=== PATIENT | female | born 1945 | race Caucasian/White ===

== ENCOUNTER 2017-04-22 10:18 | Inpatient (IN) | payer MEDICARE ==
[~2017-04-22] VITALS: Ht 160 cm; Wt 62.1 kg
[~2017-04-22 10:18] MED LIST: GABA300C10 PO
[2017-04-22] MEDS ORDERED: FLUO20CA19 PO (10:33)
[2017-04-22] MEDS ORDERED: SODIUM CHLORIDE 0.9% 1,000 ML IV ONE (10:35)
[2017-04-22] MEDS ORDERED: ONDANSETRON 2MG/ML, 2ML ONE (10:44)
[2017-04-22] MEDS ORDERED: LORazepam 2 MG/ML, 1ML ONE ×2 (10:45→12:17)
[2017-04-22] MEDS ORDERED: ONDANSETRON 2MG/ML, 2ML IVPush ONE (11:00)
[2017-04-22] MEDS ORDERED: LORazepam 2 MG/ML, 1ML IVPush ONE ×2 (11:00→12:30)
[2017-04-22] MEDS ORDERED: SODIUM CHLORIDE 0.9% 1,000ML IVBOLUS ONE (11:00)
[2017-04-22 11:10] LABS: ASPARTATE AMINO TRANSFERASE 49 U/L (15-37); BLOOD UREA NITROGEN 17 mg/dL (7-18)
[2017-04-22 11:23] LABS: ACETAMINOPHEN < 2 mcg/mL (10-30)
[2017-04-22] MEDS ORDERED: SODIUM CHLORIDE FLUSH 10ML SYR IVF PRN (13:30)
[2017-04-22] MEDS ORDERED: DILTIAZEM 5 MG/ML, 5ML IVPush PRN (14:00)
[2017-04-22] MEDS ORDERED: THIAMINE 200 MG in SODIUM CHLORIDE 0.9% 50 ML IV ONE (14:00)
[2017-04-22] MEDS ORDERED: LORazepam 2 MG/ML, 1ML IVPush PRN (14:00)
[2017-04-22 14:58] VITALS: BP 119/76
[2017-04-22] MEDS ORDERED: HEPARIN 5,000 UNITS/ML, 1ML IV ONE (15:30)
[2017-04-22] MEDS ORDERED: LOSA25TA5 PO (15:35)
[2017-04-22] MEDS: HEPARIN 25,000 UNITS/500ML PMX 500 ML IV PRN (16:45)
[2017-04-22] MEDS: POTASSIUM CHLORIDE 20 MEQ, MAGNESIUM SULFATE 1 GM, FOLIC ACID 1 MG, THIAMINE 100 MG, MV... IV SCH (17:11)
[2017-04-22] MEDS ORDERED: LOSA1TAB18 PO (17:15)
[2017-04-22 18:45] VITALS: BP 120/73
[2017-04-22] MEDS: TRAZODONE 50MG TABLET PO SCH (22:08)
[2017-04-22 23:23] LABS: DAU SCREEN DISCLAIMER
[2017-04-23 01:15] VITALS: BP 145/82
[2017-04-23 06:15] LABS: ASPARTATE AMINO TRANSFERASE 34 U/L (15-37); BLOOD UREA NITROGEN 13 mg/dL (7-18)
[2017-04-23] MEDS: HEPARIN 5,000 UNITS/ML, 1ML IV PRN ×2 (06:17→19:01)
[2017-04-23 07:46] VITALS: BP 122/77
[2017-04-23 08:16] LABS: TOTAL IRON BINDING CAPACITY 260 mcg/dL (250-450)
[2017-04-23] MEDS: FLUOXETINE 20 MG CAPSULE PO SCH (10:40)
[2017-04-23 12:53] LABS: OCCBLD OBC PASS
[2017-04-23 16:09] VITALS: BP 143/79
[2017-04-23] MEDS: POTASSIUM CHLORIDE 20 MEQ, MAGNESIUM SULFATE 1 GM, FOLIC ACID 1 MG, THIAMINE 100 MG, MV... IV SCH (17:35)
[2017-04-23 18:47] VITALS: BP 143/82
[2017-04-23] MEDS: TRAZODONE 50MG TABLET PO SCH (20:18)
[2017-04-24] MEDS: HEPARIN 25,000 UNITS/500ML PMX 500 ML IV PRN (01:17)
[2017-04-24 01:21] VITALS: BP 124/71
[2017-04-24 06:00] LABS: BLOOD UREA NITROGEN 6 mg/dL (7-18)
[2017-04-24 06:05] LABS: ASPARTATE AMINO TRANSFERASE 70 U/L (15-37)
[2017-04-24 06:51] VITALS: BP 129/76
[2017-04-24] MEDS: FLUOXETINE 20 MG CAPSULE PO SCH (08:14)
[2017-04-24] MEDS: HEPARIN 5,000 UNITS/ML, 1ML IV PRN (09:31)
[2017-04-24] MEDS ORDERED: ASPI325T80 PO (12:55)
[2017-04-24] MEDS ORDERED: POTA20PA8 PO (12:55)
[2017-04-24] MEDS ORDERED: MULT-658 PO (12:55)
[2017-04-24 14:21] VITALS: BP 155/89
== END 2017-04-24 15:32 | disposition home or self-care (01) | DRG 309 ==
LOC: ED 12:36 → EDIP 13:17 → 5SO 14:48 → DCLOUNGE 04-24 14:54
DX: I48.0 Paroxysmal atrial fibrillation (principal); R71.0 Precipitous drop in hematocrit; F10.239 Alcohol dependence with withdrawal, unspecified; E87.2 Acidosis; I10 Essential (primary) hypertension; F41.9 Anxiety disorder, unspecified; G89.29 Other chronic pain; K70.9 Alcoholic liver disease, unspecified; M54.5 Low back pain; R45.1 Restlessness and agitation; Y90.9 Presence of alcohol in blood, level not specified; R45.4 Irritability and anger; Z90.710 Acquired absence of both cervix and uterus; Z91.81 History of falling; Z79.899 Other long term (current) drug therapy
CPT/HCPCS: 36415; 71010; 80053; 80307; 80329; 81003; 82010; 82140; 82272; 83540; 83550; 83735; 84100; 84443; 85014; 85018; 85025; 85520; 93005; 93306; 96361; 96374; 96375; 96376; J1644; J2405; J3411; J3475; J3480; J7042; G0480; J2060; J7030

== ENCOUNTER → 2017-10-23 | Outpatient (CLI) | payer MEDICARE ==
[~2017-10-23] MED LIST changes: +ASPI325T80 PO; +FLUO20CA19 PO; +LIDOCAINE 1%, 50ML ONE; +LOSA1TAB25 PO; +LOSA25TA5 PO; +MULT-658 PO; +POTA20PA25 PO
== END | disposition home or self-care (01) ==
LOC: CFH 08:04
PROVIDERS: ATTEND Nurse Practitioner Family
DX: N60.82 Other benign mammary dysplasias of left breast (principal); R92.1 Mammographic calcification found on diagnostic imaging of breast
CPT/HCPCS: 19081; 77065; 88305; J3490

== ENCOUNTER 2018-04-03 05:55 | Inpatient (IN) | payer MEDICARE ==
[~2018-04-03] VITALS: Ht 160 cm; Wt 58.0 kg
[~2018-04-03 05:55] MED LIST changes: -LIDOCAINE 1%, 50ML ONE
[2018-04-03] MEDS ORDERED: ONDANSETRON 2MG/ML, 2ML IVPush ONE (07:30)
[2018-04-03] MEDS ORDERED: MORPHINE SULFATE 4 MG/ML, 1ML IVPush PRN (07:30)
[2018-04-03 07:41] LABS: BASOPHILS # (AUTO) 0.02 x10^3/uL (0-0.1); BASOPHILS % (AUTO) 0 % (0-1); EOSINOPHILS # (AUTO) 0.06 x10^3/uL (0-0.4); EOSINOPHILS % (AUTO) 1 % (1-7); LYMPHOCYTES # (AUTO) 0.85 x10^3/uL (1-3.4); LYMPHOCYTES % (AUTO) 12 % (22-44); MD NO; MEAN CORPUSCULAR HEMOGLOBIN 33.2 pg (27.0-34.8); MEAN CORPUSCULAR HGB CONC 33.9 g/dL (32.4-35.8); MEAN CORPUSCULAR VOLUME 97.8 fL (80-100); MEAN PLATELET VOLUME 7.5 fL (7.4-10.4); MONOCYTES # (AUTO) 0.73 x10^3/uL (0.2-0.8); MONOCYTES % (AUTO) 11 % (2-9); NEUTROPHILS # (AUTO) 5.21 x10^3/uL (1.8-6.8); NEUTROPHILS % (AUTO) 76 % (42-75); PLATELET COUNT 271 x10^3/uL (130-400)
[2018-04-03 07:50] LABS: INTERNATIONAL NORMALIZED RATIO 0.97 (0.93-1.1)
[2018-04-03 07:52] LABS: ALANINE AMINOTRANSFERASE 23 U/L (12-78); ALBUMIN 4.4 g/dL (3.4-5.0); ANION GAP 10 mmol/L (5-15); BILIRUBIN, DIRECT 0.2 mg/dL (0.1-0.2); CHLORIDE 96 mmol/L (98-107); CREATININE 0.67 mg/dL (0.55-1.02)
[2018-04-03 07:53] LABS: ALKALINE PHOSPHATASE 57 U/L (45-117); BILIRUBIN,INDIRECT 0.5 mg/dL (0.0-2.0); BILIRUBIN,TOTAL 0.7 mg/dL (0.2-1.0); TOTAL PROTEIN 8.8 g/dL (6.4-8.2)
[2018-04-03] MEDS ORDERED: MORPHINE SULFATE 4 MG/ML, 1ML ONE (08:02)
[2018-04-03] MEDS ORDERED: ONDANSETRON 2MG/ML, 2ML ONE ×2 (08:02→17:36)
[2018-04-03] MEDS ORDERED: SODIUM CHLORIDE FLUSH 10ML SYR IVF PRN (08:30)
[2018-04-03 09:07] VITALS: BP 107/70
[2018-04-03] MEDS ORDERED: DOCUSATE 100 MG CAPSULE PO PRN (09:30)
[2018-04-03] MEDS ORDERED: ENALAPRILAT 1.25 MG/ML, 2ML IVPush PRN (09:30)
[2018-04-03] MEDS ORDERED: LORazepam 2 MG/ML, 1ML IVPush PRN ×2 (09:30→17:30)
[2018-04-03] MEDS ORDERED: BISACODYL 10 MG SUPP PR PRN (09:30)
[2018-04-03] MEDS ORDERED: ACETAMINOPHEN 325 MG TABLET PO PRN ×2 (09:30→17:30)
[2018-04-03] MEDS: SODIUM CHLORIDE 0.9% 1,000 ML IV SCH (10:20)
[2018-04-03] MEDS: morphine SULFATE 10 MG/ML, 1ML IVPush PRN (11:04)
[2018-04-03] MEDS ORDERED: ONDANSETRON ODT 4 MG PO PRN (12:00)
[2018-04-03 13:24] VITALS: BP 103/64
[2018-04-03] MEDS ORDERED: ONDANSETRON 2MG/ML, 2ML IVPush PRN (14:00)
[2018-04-03] MEDS ORDERED: MIDAZOLAM 1 MG/ML, 2ML ONE (15:54)
[2018-04-03] MEDS ORDERED: FENTANYL PF 250 MCG/5ML ONE (15:55)
[2018-04-03] MEDS ORDERED: ROCURONIUM 10MG/ML,5ML ONE (15:56)
[2018-04-03] MEDS ORDERED: SODIUM CHLORIDE 0.9% PF 10ML ONE (15:57)
[2018-04-03] MEDS ORDERED: CEFAZOLIN 1,000 MG ONE ×2 (15:57)
[2018-04-03] MEDS ORDERED: PROPOFOL 10 MG/ML, 20ML ONE ×2 (15:58)
[2018-04-03] MEDS ORDERED: DEXAMETHASONE 4 MG/ML, 1ML ONE ×2 (15:58)
[2018-04-03] MEDS ORDERED: TRANEXAMIC ACID 100 MG/ML, 10ML ONE (16:37)
[2018-04-03] MEDS ORDERED: PROMETHAZINE 25 MG/ML, 1ML IV PRN (17:30)
[2018-04-03] MEDS ORDERED: HALOPERIDOL 5 MG/ML IV PRN (17:30)
[2018-04-03] MEDS ORDERED: MEPERIDINE/PF 25MG/0.5ML IVPush PRN (17:30)
[2018-04-03] MEDS ORDERED: LABETALOL 5MG/ML, 20ML IV PRN (17:30)
[2018-04-03] MEDS ORDERED: hydrALAzine 20 MG/ML, 1ML IV PRN (17:30)
[2018-04-03] MEDS ORDERED: OXYcodone 5 MG/5 ML ORAL.SOL UDC PO PRN (17:30)
[2018-04-03] MEDS ORDERED: FENTANYL PF 100 MCG/2ML IV PRN (17:30)
[2018-04-03] MEDS ORDERED: HYDROmorphone 1 MG/ML, 1ML IV PRN (17:30)
[2018-04-03] MEDS ORDERED: NEOSPORIN OINT, 15GM ONE (17:34)
[2018-04-03] MEDS ORDERED: OXYcodone 5 MG/5 ML ORAL.SOL UDC ONE (18:25)
[2018-04-03] MEDS ORDERED: FENTANYL PF 100 MCG/2ML ONE (18:30)
[2018-04-03 19:45] VITALS: BP 100/70
[2018-04-03] MEDS: ASPIRIN 81 MG TABLET EC PO SCH (20:43)
[2018-04-04] MEDS: OXYcodone 5 MG/5 ML ORAL.SOL UDC PO PRN ×6 (00:20→21:29)
[2018-04-04] MEDS: CEFAZOLIN PMX 1GM/50ML 50 ML IV SCH ×3 (00:20→15:59)
[2018-04-04 01:03] VITALS: BP 105/69
[2018-04-04] MEDS: SODIUM CHLORIDE 0.9% 1,000 ML IV SCH ×3 (02:30→21:25)
[2018-04-04 05:23] LABS: BASOPHILS % (AUTO) 0 % (0-1); EOSINOPHILS % (AUTO) 0 % (1-7); LYMPHOCYTES # (AUTO) 0.55 x10^3/uL (1-3.4); LYMPHOCYTES % (AUTO) 6 % (22-44); MD NO; MEAN CORPUSCULAR HEMOGLOBIN 33.2 pg (27.0-34.8); MEAN CORPUSCULAR HGB CONC 33.5 g/dL (32.4-35.8); MEAN PLATELET VOLUME 7.6 fL (7.4-10.4); MONOCYTES # (AUTO) 0.71 x10^3/uL (0.2-0.8); MONOCYTES % (AUTO) 8 % (2-9); NEUTROPHILS # (AUTO) 7.44 x10^3/uL (1.8-6.8); NEUTROPHILS % (AUTO) 86 % (42-75); PLATELET COUNT 254 x10^3/uL (130-400); RED BLOOD COUNT 2.93 x10^6/uL (3.82-5.3); RED CELL DISTRIBUTION WIDTH 12.8 % (9.6-15.2)
[2018-04-04 05:45] LABS: CHLORIDE 101 mmol/L (98-107)
[2018-04-04 05:54] LABS: ANION GAP 8 mmol/L (5-15); CALCIUM 8.6 mg/dL (8.5-10.1); CREATININE 0.61 mg/dL (0.55-1.02)
[2018-04-04 06:44] VITALS: BP 109/64
[2018-04-04] MEDS: morphine SULFATE 10 MG/ML, 1ML IVPush PRN (07:53)
[2018-04-04] MEDS: ASPIRIN 81 MG TABLET EC PO SCH ×2 (07:54→21:24)
[2018-04-04] MEDS: FLUOXETINE HCL 20 MG CAPSULE PO SCH (07:54)
[2018-04-04] MEDS: MAGNESIUM OXIDE 400 MG TABLET PO SCH (10:29)
[2018-04-04] MEDS: FOLIC ACID 1 MG TABLET PO SCH (10:29)
[2018-04-04] MEDS: THIAMINE 100MG TABLET PO SCH (10:30)
[2018-04-04] MEDS: KETOROLAC 30 MG/1 ML IVPush PRN ×2 (10:31→21:25)
[2018-04-04] MEDS ORDERED: ROPINIROLE 1MG TABLET ONE (11:58)
[2018-04-04] MEDS: ROPINIROLE 1MG TABLET PO SCH (11:59)
[2018-04-04 13:31] VITALS: BP 92/57
[2018-04-04 20:12] VITALS: BP 137/84
[2018-04-05 01:09] VITALS: BP 93/54
[2018-04-05] MEDS: OXYcodone 5 MG/5 ML ORAL.SOL UDC PO PRN ×6 (01:44→22:03)
[2018-04-05 04:57] LABS: ANION GAP 5 mmol/L (5-15); CALCIUM 8.3 mg/dL (8.5-10.1); CHLORIDE 97 mmol/L (98-107)
[2018-04-05 04:58] LABS: BASOPHILS # (AUTO) 0.02 x10^3/uL (0-0.1); BASOPHILS % (AUTO) 0 % (0-1); CREATININE 0.63 mg/dL (0.55-1.02); EOSINOPHILS # (AUTO) 0.08 x10^3/uL (0-0.4); EOSINOPHILS % (AUTO) 1 % (1-7); LYMPHOCYTES # (AUTO) 1.15 x10^3/uL (1-3.4); LYMPHOCYTES % (AUTO) 19 % (22-44); MD NO; MEAN CORPUSCULAR HEMOGLOBIN 33.4 pg (27.0-34.8); MEAN CORPUSCULAR VOLUME 98.2 fL (80-100); MEAN PLATELET VOLUME 7.5 fL (7.4-10.4); MONOCYTES # (AUTO) 0.69 x10^3/uL (0.2-0.8); MONOCYTES % (AUTO) 11 % (2-9); NEUTROPHILS % (AUTO) 69 % (42-75); PLATELET COUNT 207 x10^3/uL (130-400); RED BLOOD COUNT 2.35 x10^6/uL (3.82-5.3); RED CELL DISTRIBUTION WIDTH 12.6 % (9.6-15.2)
[2018-04-05] MEDS: KETOROLAC 30 MG/1 ML IVPush PRN ×2 (05:39→14:05)
[2018-04-05 06:44] VITALS: BP 98/60
[2018-04-05] MEDS: ROPINIROLE 1MG TABLET PO SCH (08:17)
[2018-04-05] MEDS: FLUOXETINE HCL 20 MG CAPSULE PO SCH (08:17)
[2018-04-05] MEDS: MAGNESIUM OXIDE 400 MG TABLET PO SCH (08:17)
[2018-04-05] MEDS: FOLIC ACID 1 MG TABLET PO SCH (08:17)
[2018-04-05] MEDS: ASPIRIN 81 MG TABLET EC PO SCH ×2 (08:17→22:00)
[2018-04-05] MEDS: THIAMINE 100MG TABLET PO SCH (08:18)
[2018-04-05] MEDS: SODIUM CHLORIDE 0.9% 1,000 ML IV SCH ×2 (08:30→18:30)
[2018-04-05 13:12] VITALS: BP 103/64
[2018-04-05] MEDS: MAGNESIUM HYDROXIDE 8%, 30ML UDC PO SCH (17:49)
[2018-04-05 18:59] VITALS: BP 108/67
[2018-04-05] MEDS ORDERED: MAGNESIUM CITRATE 300ML ORAL SOL PO ONE (21:00)
[2018-04-06 00:55] VITALS: BP 119/73
[2018-04-06] MEDS: KETOROLAC 30 MG/1 ML IVPush PRN (01:56)
[2018-04-06] MEDS: OXYcodone 5 MG/5 ML ORAL.SOL UDC PO PRN ×5 (01:57→14:31)
[2018-04-06 04:19] VITALS: BP 107/66
[2018-04-06] MEDS: SODIUM CHLORIDE 0.9% 1,000 ML IV SCH ×2 (04:30→08:58)
[2018-04-06 07:10] VITALS: BP 91/52
[2018-04-06 07:37] LABS: ALBUMIN 2.8 g/dL (3.4-5.0); ANION GAP 5 mmol/L (5-15); CALCIUM 8.3 mg/dL (8.5-10.1); CHLORIDE 98 mmol/L (98-107); CREATININE 0.58 mg/dL (0.55-1.02)
[2018-04-06 07:47] LABS: BASOPHILS # (AUTO) 0.01 x10^3/uL (0-0.1); BASOPHILS % (AUTO) 0 % (0-1); EOSINOPHILS # (AUTO) 0.08 x10^3/uL (0-0.4); EOSINOPHILS % (AUTO) 1 % (1-7); LYMPHOCYTES # (AUTO) 0.87 x10^3/uL (1-3.4); LYMPHOCYTES % (AUTO) 14 % (22-44); MD NO; MEAN CORPUSCULAR HEMOGLOBIN 33.5 pg (27.0-34.8); MEAN CORPUSCULAR VOLUME 98.3 fL (80-100); MEAN PLATELET VOLUME 7.3 fL (7.4-10.4); MONOCYTES # (AUTO) 0.89 x10^3/uL (0.2-0.8); MONOCYTES % (AUTO) 14 % (2-9); NEUTROPHILS # (AUTO) 4.42 x10^3/uL (1.8-6.8); NEUTROPHILS % (AUTO) 70 % (42-75); PLATELET COUNT 295 x10^3/uL (130-400); RED CELL DISTRIBUTION WIDTH 12.3 % (9.6-15.2)
[2018-04-06] MEDS ORDERED: ROPI1TAB PO (08:25)
[2018-04-06] MEDS ORDERED: ASPI-621 PO (08:25)
[2018-04-06] MEDS ORDERED: FOLI-17 PO (08:25)
[2018-04-06] MEDS ORDERED: THIA100T6 PO (08:25)
[2018-04-06] MEDS: ROPINIROLE 1MG TABLET PO SCH (08:56)
[2018-04-06] MEDS: MAGNESIUM OXIDE 400 MG TABLET PO SCH (08:56)
[2018-04-06] MEDS: THIAMINE 100MG TABLET PO SCH (08:56)
[2018-04-06] MEDS: ASPIRIN 81 MG TABLET EC PO SCH (08:56)
[2018-04-06] MEDS: FOLIC ACID 1 MG TABLET PO SCH (08:56)
[2018-04-06] MEDS: FLUOXETINE HCL 20 MG CAPSULE PO SCH (08:56)
[2018-04-06] MEDS: MAGNESIUM HYDROXIDE 8%, 30ML UDC PO SCH (08:57)
[2018-04-06 14:34] VITALS: BP 112/64
[2018-04-06] MEDS ORDERED: OXYC-302 PO (16:39)
[2018-04-06] MEDS ORDERED: MELO15TA24 PO (17:18)
== END 2018-04-06 18:10 | disposition home or self-care (01) | DRG 469 ==
LOC: ED 07:59 → EDIP 08:02 → 4NOR 08:50
PROVIDERS: ADMIT Internal Medicine; ATTEND Internal Medicine
PROC: 0SRR019 Replacement of Right Hip Joint, Femoral Surface with Metal Synthetic Substitute, Cemented, Open Approach (ICD-10-PCS; principal; 2018-04-03 16:00)
DX: S72.011A Unspecified intracapsular fracture of right femur, initial encounter for closed fracture (principal); E43 Unspecified severe protein-calorie malnutrition; E87.1 Hypo-osmolality and hyponatremia; F10.10 Alcohol abuse, uncomplicated; D64.9 Anemia, unspecified; W18.30XA Fall on same level, unspecified, initial encounter; E78.5 Hyperlipidemia, unspecified; F32.9 Major depressive disorder, single episode, unspecified; I10 Essential (primary) hypertension; W18.39XA Other fall on same level, initial encounter; Y93.9 Activity, unspecified; Y92.9 Unspecified place or not applicable; Y99.9 Unspecified external cause status; Y93.89 Activity, other specified; Y92.89 Other specified places as the place of occurrence of the external cause; Z80.0 Family history of malignant neoplasm of digestive organs; Z82.49 Family history of ischemic heart disease and other diseases of the circulatory system
CPT/HCPCS: 36415; 71045; 72170; 80048; 80076; 82040; 82306; 83735; 85025; 85610; 85730; 93005; 96374; 96375; C1713; J0690; J1100; J1885; J2250; J2405; J2704; J3010; C1762; C1776; J2270; J7030

== ENCOUNTER 2019-04-21 17:21 | Inpatient (IN) | payer MEDICARE ==
[~2019-04-21] VITALS: Ht 170.2 cm; Wt 57.9 kg
[2019-04-29 10:05] VITALS: BP 149/89
== END 2019-04-29 11:30 | disposition left against medical advice (07) | DRG 870 ==
LOC: ED 18:43 → EDIP 18:48 → ED 19:29 → CCU 21:16 → 5SO 04-26 11:49
PROVIDERS: ADMIT Family Medicine; ATTEND Family Medicine
PROC: 009U3ZX Drainage of Spinal Canal, Percutaneous Approach, Diagnostic (ICD-10-PCS; principal; 2019-04-21)
PROC: 5A1955Z Respiratory Ventilation, Greater than 96 Consecutive Hours (ICD-10-PCS; 2019-04-21)
PROC: 0BH17EZ Insertion of Endotracheal Airway into Trachea, Via Natural or Artificial Opening (ICD-10-PCS; 2019-04-21)
PROC: 02HV33Z Insertion of Infusion Device into Superior Vena Cava, Percutaneous Approach (ICD-10-PCS; 2019-04-22)
PROC: 03HY32Z Insertion of Monitoring Device into Upper Artery, Percutaneous Approach (ICD-10-PCS; 2019-04-22)
DX: A41.51 Sepsis due to Escherichia coli [E. coli] (principal); J96.01 Acute respiratory failure with hypoxia; I21.4 Non-ST elevation (NSTEMI) myocardial infarction; G93.41 Metabolic encephalopathy; R65.21 Severe sepsis with septic shock; J18.9 Pneumonia, unspecified organism; I50.33 Acute on chronic diastolic (congestive) heart failure; F10.231 Alcohol dependence with withdrawal delirium; E87.1 Hypo-osmolality and hyponatremia; E87.4 Mixed disorder of acid-base balance; N12 Tubulo-interstitial nephritis, not specified as acute or chronic; Z99.11 Dependence on respirator [ventilator] status; Z96.641 Presence of right artificial hip joint; E78.5 Hyperlipidemia, unspecified; F32.9 Major depressive disorder, single episode, unspecified; G89.29 Other chronic pain; I11.0 Hypertensive heart disease with heart failure; K70.9 Alcoholic liver disease, unspecified; I48.91 Unspecified atrial fibrillation; K74.60 Unspecified cirrhosis of liver; I34.0 Nonrheumatic mitral (valve) insufficiency; B02.9 Zoster without complications; R56.9 Unspecified convulsions; K86.9 Disease of pancreas, unspecified; Z90.710 Acquired absence of both cervix and uterus; Z78.1 Physical restraint status
CPT/HCPCS: 0399T; 36415; 36600; 70450; 70496; 70498; 71045; 74176; 80047; 80048; 80053; 80076; 80307; 81003; 82140; 82150; 82330; 82533; 82803; 82945; 82962; 83605; 83690; 83735; 84100; 84145; 84157; 84443; 84478; 84484; 85025; 85610; 85730; 86301; 87040; 87070; 87077; 87081; 87186; 87205; 87252; 89051; 93005; 93306; 94002; 94003; 96361; 96374; 99291; G0378; J0610; J0696; J1170; J1650; J2543; J2704; J3360; J3370; J3411; J3475; J3480; J7042; J7070; Q9967; J0330; J1815; J1940; J2060; J2370; J3490; J7030; J7040; J7050